=== PATIENT | female | born 1980 | race Caucasian/White ===

== ENCOUNTER → 2016-08-05 | Outpatient (CLI) | payer OTHER ==
[~2016-08-05] MED LIST: ALPR-411 PO; CYAN10005 IM; IMD/2 PO; MAGN400T6 PO; SERT-234 PO; no meds
[2016-08-05 09:47] VITALS: BP 131/91; PULSE 72; TEMP 36.5; O2SAT 99
--- NOTE | 2016-08-05 17:37 | Radiation Oncology Follow-Up ---
Radiation Oncology Follow-Up Date of Visit Aug 05, 2016. 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 Pelvic lymph node dissection - Dr. Juan - 02/18/2016 2. Status post completion of combined radiation and chemotherapy - External beam radiation therapy - completed 04/30/2016 - 4500 cGy to Pelvis and 600 cGy pelvic sidewall boost. - HDR tandem and ovoid treatments - 5 fractions - 600 cGy each -Concurrent weekly cisplatin chemotherapy (Dr. Tom) Last Edited By: Bassem Taylor on Aug 05, 2016 17:23 Interim History Ms. Adamson is a 35-year-old female who presents with locally advanced cervical cervical cancer. The patient was initially treated with a pelvic and periaortic lymph node dissection by Dr. Juan which did reveal periaortic lymph node involvement. The patient was subsequently treated with pelvic chemoradiation therapy followed by tandem and ovoid brachytherapy which completed on 04/30/2016. The patient was lost to follow-up and now presents for routine follow up. Currently, the patient complains that she has some minimal nonbloody discharge from the cervix/vagina. She does state that she is sexually active and having no discomfort with intercourse. She denies any vaginal bleeding. She states that he has no urinary or rectal symptoms. She has no other complaints. She has not follow up with Dr. Juan since the end of April 2016. Allergies Coded Allergies: No Known Allergies (Verified , 04/28/16) Home Medications Miscellaneous Medications [no meds] Review of Systems Gastrointestinal: Symptoms: WNL Oral: Symptoms: No Problems Respiratory: Symptoms: WNL Urinary: Symptoms: WNL Skin: Symptoms: No Problems Physical Exam Vital Signs Date Time Temp Pulse Resp B/P Pulse Ox O2 Delivery O2 Flow Rate FiO2 08/05/16 09:47 36.5 72 18 131/91 99 Pain: Side: Bilateral Patient Pain Scale: 0 - 10 Initial Pain Intensity: 0.0 General Appearance: WD/WN, no apparent distress Eyes: normal inspection ENT: normal ENT inspection Neck: supple, no adenopathy Cardiovascular: regular rate, rhythm, no edema, no gallop, no JVD Abdomen: normal bowel sounds, non tender, soft, no organomegaly Genitourinary - Female: Speculum: A fleshy/vascular mass was appreciated in the right vaginal apex that was not bleeding. There was copious secretions that were cleaned out with long Q-tips. The cervical os was not appreciated at the time of the examination. Late radiation changes noted in the posterior vaginal wall and left vaginal fornice. Bimanual exam: Palpation confirms the presence of a mass in the right vaginal apex that is nontender to palpation. Rectovaginal exam: No evidence of disease palpated in the rectovaginal space/ wall and no evidence of any parametrial disease. Extremities: normal range of motion, non-tender, normal inspection Neurologic/Psychiatric: healthcare management consultant II-XII nml as tested, alert, normal mood/affect, oriented x 3 Skin: normal color, warm/dry, no rash Assessment & Plan Ms. Adamson is a 35-year-old female recently treated with pelvic chemoradiation therapy and HDR brachytherapy which completed in April 2016 for locally advanced cervical cancer with periaortic lymph node involvement. The patient was lost to follow-up and we have been trying to get in touch with her to schedule a PET/CT scan. The patient did unexpectedly show up today and we did see her in follow-up evaluation. The patient has no symptomatic complaints at this point however her pelvic examination revealed a fleshy/vascular mass at the left vaginal apex that is concerning for recurrent disease. I have urged the patient to undergo a PET/CT scan and also expeditiously follow-up with Dr. Sadiq Juan since she has not seen him recently and I would appreciate his input regarding her physical exam findings. I will call Dr. Sadiq Juan shortly as well to discuss the findings with him. We will order a PET/CT scan and then call the patient with the results to determine the next step in the course of action. We have strongly emphasized with the patient the she needs to make all of her appointments for follow-ups and imaging studies due to the fact that we are concerned that she may have a potential recurrence which could ultimately lead to further symptoms and progression of disease. She explains to us that she clearly understands. She had no further questions or concerns. She was encouraged to call us with any further questions or concerns in the future or she like to be seen again urgently. Total Time In Follow-Up I spent 20 minutes examining and counseling the patient. I spent 15 minutes completing this note. Copy To Gaurav Tom D.O.; Sadiq Juan M.D.
== END | disposition home or self-care (01) ==
LOC: C.ONC 09:35
PROVIDERS: ATTEND Radiology Radiation Oncology
DX: Z08 Encounter for follow-up examination after completed treatment for malignant neoplasm (principal); Z92.3 Personal history of irradiation; Z85.41 Personal history of malignant neoplasm of cervix uteri

== ENCOUNTER → 2016-08-17 | Outpatient (CLI) | payer OTHER ==
[~2016-08-17] MED LIST changes: -ALPR-411 PO; -CYAN10005 IM; -IMD/2 PO; -MAGN400T6 PO; -SERT-234 PO
--- NOTE | 2016-08-17 12:45 | DIAGNOSTIC IMAGING REPORT ---
PET/CT SKULL-THIGH CLINICAL HISTORY: CERVICAL CANCER COMPARISON STUDY: Outside CT scan dated 12/18/2015 FINDINGS: The patient was injected with 14.8 mCi of F 18 labeled FDG. Following the standard induction phase, PET/CT scanning was performed from the skull base the upper thigh region. Within the neck, there is mild increased activity within nonpathologically enlarged retromandibular lymph nodes. These demonstrate an SUV maximum of 3.6. Within the thorax, there is no evidence of pathologic kelin activity. There is no evidence of pathologic parenchymal activity. No suspicious pulmonary nodules are visualized. Within the abdomen and pelvis, there is physiologic urinary tract and bowel activity. There is no evidence of pathologic hepatic activity. There is no evidence of pathologic kelin activity. The cervix appears enlarged. There is increased activity within the cervix/upper vagina with SUV maximum of 7.6. There is no pathologic kelin activity. There is no pathologic skeletal activity. IMPRESSION: 1. Enlargement of the cervix/upper vagina, which measures 5.3 cm in transverse diameter. There is abnormal increased FDG activity at this level with SUV maximum of 7.6. Given the clinical history, the findings are suspicious for neoplasm 2. Mild increased activity within nonpathologically enlarged regimen mandibular lymph nodes. 3. No pathologic kelin activity within the chest abdomen or pelvis. Electronically signed by: Cuong Clark M.D. 08/17/2016 12:43 PM Dictated Date/Time: 08/17/2016 12:35 PM
== END | disposition home or self-care (01) ==
LOC: C.PET 10:14
PROVIDERS: ATTEND Radiology Radiation Oncology
DX: C53.8 Malignant neoplasm of overlapping sites of cervix uteri (principal)

== ENCOUNTER 2017-04-14 22:01 | Emergency (ER) | payer OTHER ==
[~2017-04-14] VITALS: Ht 162.6 cm; Wt 75.7 kg
[2017-04-14 22:06] VITALS: TEMP 37.1; Ht 162.6 cm; Wt 75.7 kg
--- NOTE | 2017-04-14 22:22 | EMERGENCY ROOM VISIT NOTE ---
History Report prepared by Adam: Cj Medina Under the Supervision of: Dr. Russel Hernandez M.D. First contact with patient: 22:10 Chief Complaint: VAGINAL BLEEDING Stated Complaint: VAGINAL BLEEDING History of Present Illness The patient is a 36 year old female who presents to the Emergency Room with complaints of constant vaginal bleeding starting today. The patient states that she has a history of cervical cancer, for which she received chemotherapy and radiation therapy last year. She notes that she has since been in remission. She reports that she no longer gets her period. The patient also complains of a mild amount of abdominal pain. She notes that she has been going through a pad every two hours. Source of History: patient Onset: today Position: other (vagina) Quality: other (bleed) Timing: constant Associated Symptoms: + abdominal pain (mild) Review of Systems See HPI for pertinent positives & negatives. A total of 10 systems reviewed and were otherwise negative. Past Medical & Surgical Medical Problems: (1) Anxiety (2) Cervical cancer (3) Depression (4) Electrolyte abnormality Family History No pertinent family history stated. Social History Smoking Status: Current Every Day Smoker Alcohol Use: occasionally Drug Use: none Marital Status: Housing Status: lives with family Occupation Status: employed Current/Historical Medications No Active Prescriptions or Reported Meds Allergies Coded Allergies: No Known Allergies (Verified , 04/14/17) Physical Exam Vital Signs Date Time Temp Pulse Resp B/P (MAP) Pulse Ox O2 Delivery O2 Flow Rate FiO2 04/15/17 00:32 69 18 134/88 99 04/14/17 23:19 99 Room Air 04/14/17 22:06 37.1 76 18 182/99 98 Room Air Physical Exam GENERAL: Patient is a healthy-appearing well-nourished female HEAD: Normocephalic atraumatic EYES: Ocular movements intact pupils equal and react to light OROPHARYNX mucous membranes are moist no exudates present no erythema or edema present NECK: Supple no nuchal rigidity CHEST: Good equal expansion LUNGS: Clear and equal to auscultation CARDIAC: Normal S1 and S2 ABDOMEN: Soft nontender no guarding BACK: No CVA tenderness EXTREMITIES: No pain upon palpation normal muscle strength in all groups no clubbing cyanosis or edema NEURO: Patient is following commands and answering questions appropriately. Alert and oriented x3 Cranial Nerves 2-12 grossly intact Medical Decision & Procedures ER Provider Diagnostic Interpretation: Radiology results as stated below per my review and radiologist interpretation: US PELVIC/ENDOVAG Normal endometrial stripe and uterus. Ovaries are not visualized. No adnexal masses. No free fluid. No other significant abnormalities. Radiologist: Miko Jones M.D. Laboratory Results 04/14/17 22:16 Red Blood Count 3.75, Mean Corpuscular Volume 91.5, Mean Corpuscular Hemoglobin 31.2, Mean Corpuscular Hemoglobin Concent 34.1, Mean Platelet Volume 9.6, Neutrophils (%) (Auto) 64.8, Lymphocytes (%) (Auto) 26.6, Monocytes (%) (Auto) 6.6, Eosinophils (%) (Auto) 1.5, Basophils (%) (Auto) 0.4, Neutrophils # (Auto) 4.42, Lymphocytes # (Auto) 1.82, Monocytes # (Auto) 0.45, Eosinophils # (Auto) 0.10, Basophils # (Auto) 0.03 04/14/17 22:16 Test 04/14/17 22:16 04/14/17 23:13 White Blood Count 6.83 K/uL (4.8-10.8) Red Blood Count 3.75 M/uL (4.2-5.4) Hemoglobin 11.7 g/dL (12.0-16.0) Hematocrit 34.3 % (37-47) Mean Corpuscular Volume 91.5 fL (80-100) Mean Corpuscular Hemoglobin 31.2 pg (25-34) Mean Corpuscular Hemoglobin Concent 34.1 g/dl (32-36) Platelet Count 223 K/uL (130-400) Mean Platelet Volume 9.6 fL (7.4-10.4) Neutrophils (%) (Auto) 64.8 % Lymphocytes (%) (Auto) 26.6 % Monocytes (%) (Auto) 6.6 % Eosinophils (%) (Auto) 1.5 % Basophils (%) (Auto) 0.4 % Neutrophils # (Auto) 4.42 K/uL (1.4-6.5) Lymphocytes # (Auto) 1.82 K/uL (1.2-3.4) Monocytes # (Auto) 0.45 K/uL (0.11-0.59) Eosinophils # (Auto) 0.10 K/uL (0-0.5) Basophils # (Auto) 0.03 K/uL (0-0.2) RDW Standard Deviation 44.8 fL (36.4-46.3) RDW Coefficient of Variation 13.5 % (11.5-14.5) Immature Granulocyte % (Auto) 0.1 % Immature Granulocyte # (Auto) 0.01 K/uL (0.00-0.02) Prothrombin Time 10.8 SECONDS (9.0-12.0) Prothromb Time International Ratio 1.0 (0.9-1.1) Activated Partial Thromboplast Time 24.8 SECONDS (21.0-31.0) Partial Thromboplastin Ratio 1.0 Anion Gap 7.0 mmol/L (3-11) Est Creatinine Clear Calc Drug Dose 82.5 ml/min Estimated GFR () 91.0 Estimated GFR (Non- 78.5 BUN/Creatinine Ratio 24.5 (10-20) Calcium Level 9.2 mg/dl (8.5-10.1) Total Bilirubin 0.3 mg/dl (0.2-1) Aspartate Amino Transf (AST/SGOT) 15 U/L (15-37) Alanine Aminotransferase (ALT/SGPT) 22 U/L (12-78) Alkaline Phosphatase 91 U/L (45-117) Total Protein 7.6 gm/dl (6.4-8.2) Albumin 4.1 gm/dl (3.4-5.0) Globulin 3.5 gm/dl (2.5-4.0) Albumin/Globulin Ratio 1.2 (0.9-2) Urine Color YELLOW Urine Appearance CLEAR (CLEAR) Urine pH 6.5 (4.5-7.5) Urine Specific Kimball 1.014 (1.000-1.030) Urine Protein 2+ (NEG) Urine Glucose (UA) NEG (NEG) Urine Ketones NEG (NEG) Urine Occult Blood 2+ (NEG) Urine Nitrite NEG (NEG) Urine Bilirubin NEG (NEG) Urine Urobilinogen NEG (NEG) Urine Leukocyte Esterase TRACE (NEG) Urine WBC (Auto) 10-30 /hpf (0-5) Urine RBC (Auto) >30 /hpf (0-4) Urine Hyaline Casts (Auto) 1-5 /lpf (0-5) Urine Epithelial Cells (Auto) >30 /lpf (0-5) Urine Bacteria (Auto) NEG (NEG) Urine Renal Epithelial Cells /lpf (0-5) Urine Pathogenic Casts /lpf (0) Urine Test NEG (NEG) Labs reviewed by ED physician. Medications Administered Medications (Trade) Dose Ordered Sig/Andrez Route Start Time Stop Time Status Last Admin Dose Admin Ketorolac Tromethamine (Toradol Inj) 30 mg NOW STAT IV 04/14/17 22:32 04/14/17 22:34 DC 04/14/17 23:18 30 MG Norethindrone Acetate (Aygestin Tab) 10 mg NOW STAT PO 04/14/17 22:32 04/14/17 22:34 DC 04/14/17 23:19 10 MG ED Course 2216: Past medical records reviewed. The patient was evaluated in room A3. A complete history and physical examination was performed. 2231: Aygestin Tab 10mg PO, Toradol Inj IV 2346: Ferric Subsulfate 8gm TOP 0010: Upon reexamination the patient is stable. I discussed results and treatment plan with the patient. She verbalizes agreement and understanding. The patient is ready for discharge. Medical Decision Differential diagnosis: Etiologies such as ectopic , dysfunction uterine bleeding, bleeding dyscrasia, trauma, infection, as well as others were entertained. This is a 36-year-old female who presents emergency department complaining of vaginal bleeding. The patient has a history of cervical cancer. An IV was established I will note that the patient has a normal red blood cell count that is higher than normal. On physical exam there is only minor bleeding present in the vaginal vault. The patient was given Toradol for her pain. Ultrasound does not show any acute abnormality and I feel that the patient can be safely discharged home however I stressed the need for close follow-up with the patient 's oncologist in [place]. Patient and were in agreement with the treatment plan. Medication Reconcilliation Current Medication List: was personally reviewed by me Blood Pressure Screening Patient's blood pressure: Elevated blood pressure Blood pressure disposition: Referred to PCP Impression Primary Impression: Vaginal bleeding Scribe Attestation The scribe's documentation has been prepared under my direction and personally reviewed by me in its entirety. I confirm that the note above accurately reflects all work, treatment, procedures, and medical decision making performed by me. Departure Information Dispostion Home / Self-Care Prescriptions No Active Prescriptions or Reported Meds Referrals No Doctor, Assigned (PCP) Forms HOME CARE DOCUMENTATION FORM, IMPORTANT VISIT INFORMATION, WORK / SCHOOL INSTRUCTIONS Patient Instructions [facility] Additional Instructions Follow up with Dr Juan's office You were found to have an elevated blood pressure today (>120 sytolic or >90 diastolic). Per medicare guidelines, you need to follow up with this blood pressure screening with your Primary Care Physician (PCP). For a new PCP call [phone]. You have been examined and treated today on an emergency basis only. This is not a substitute for, or an effort to provide, complete comprehensive medical care. It is impossible to recognize and treat all injuries or illnesses in a single emergency department visit. It is therefore important that you follow up closely with your PCP. Call as soon as possible for an appointment. Thank you for your time and consideration. I look forward to speaking with you again soon. Please don't hesitate to call us if you have any questions.
[2017-04-14 22:31] LABS: BASO % 0.4 %; BASO ABS # 0.03 K/uL (0-0.2); COMPLETE YES; EOS % 1.5 %; HEMATOCRIT 34.3 % (37-47); IG% 0.1 %; LYMPH % 26.6 %; LYMPH ABS # 1.82 K/uL (1.2-3.4); MEAN CELL VOLUME 91.5 fL (80-100); MEAN CORPUSCULAR HEMOGLOBIN 31.2 pg (25-34); MEAN CORPUSCULAR HGB CONC 34.1 g/dl (32-36); MEAN PLATELET VOLUME 9.6 fL (7.4-10.4); MONO % 6.6 %; NEUT % 64.8 %; PLATELET COUNT 223 K/uL (130-400); RED BLOOD COUNT 3.75 M/uL (4.2-5.4); WHITE BLOOD COUNT 6.83 K/uL (4.8-10.8)
[2017-04-14] MEDS ORDERED: NORETHINDRONE ACETATE 5 MG TAB PO STA (22:32)
[2017-04-14] MEDS ORDERED: KETOROLAC TROMETHAMINE 30 MG/ML VIAL IV STA (22:32)
[2017-04-14 22:40] LABS: PROTHROMBIN TIME (PATIENT) 10.8 SECONDS (9.0-12.0)
[2017-04-14 22:53] LABS: BUN/CREATININE RATIO 24.5 (10-20); CALCIUM 9.2 mg/dl (8.5-10.1); CREATININE 0.93 mg/dl (0.60-1.20); POTASSIUM 3.5 mmol/L (3.5-5.1)
[2017-04-14 22:56] LABS: ALB/GLOB RATIO 1.2 (0.9-2)
[2017-04-14 23:19] VITALS: O2SAT 99
[2017-04-14] MEDS ORDERED: FERRIC SUBSULFATE 8 GM VIAL TOP STA (23:46)
[2017-04-14 23:52] LABS: MANUAL MICROSCOPIC REQUIRED? NO; REVIEW REQ? YES; URINE APPEARANCE CLEAR (CLEAR); URINE BILIRUBIN NEG (NEG); URINE COLOR YELLOW; URINE EPITHELIAL CELL AUTO >30 /lpf (0-5); URINE NITRITE NEG (NEG); URINE PH 6.5 (4.5-7.5); URINE SPECIFIC GRAVITY 1.014 (1.000-1.030); UROBILINOGEN NEG (NEG)
[2017-04-15 00:32] VITALS: BP 134/88; PULSE 69; O2SAT 99
--- NOTE | 2017-04-15 07:52 | DIAGNOSTIC IMAGING REPORT ---
PELVIC ULTRASOUND, TRANSABDOMINAL AND TRANSVAGINAL HISTORY: Pt c/o heavy vag bleeding COMPARISON: PET CT 08/17/2016. FINDINGS: Uterus: 6.4 x 4.9 x 3.6 cm. Endometrial stripe: Endometrial stripe is 9 mm in thickness. Right ovary: Obscured by overlying bowel. Left ovary: Obscured by overlying bowel. Miscellaneous:No pelvic free fluid. No adnexal masses. IMPRESSION: No significant abnormality identified within the pelvis. Electronically signed by: Pete Perez M.D. 04/15/2017 7:50 AM Dictated Date/Time: 04/15/2017 7:48 AM
== END 2017-04-15 00:33 | disposition home or self-care (01) ==
LOC: C.EDB 22:02 → C.EDA 04-15 00:33
DX: N93.9 Abnormal uterine and vaginal bleeding, unspecified (principal); Z85.41 Personal history of malignant neoplasm of cervix uteri; Z92.21 Personal history of antineoplastic chemotherapy